=== PATIENT | male | born 1985 | race Caucasian/White ===

== ENCOUNTER 2018-06-25 23:08 | Emergency (ER) | payer MEDICAID ==
[~2018-06-25] VITALS: Ht 162.6 cm; Wt 69.9 kg
[2018-06-25 23:16] VITALS: Ht 162.6 cm; Wt 69.9 kg
[2018-06-26] MEDS ORDERED: ONDANSETRON (ODT) 4 MG TAB ODT STA (00:45)
[2018-06-26] MEDS ORDERED: IBUPROFEN 600 MG TAB PO ONE (01:00)
[2018-06-26] MEDS ORDERED: IBUP-1541 PO (02:02)
[2018-06-26] MEDS ORDERED: ONDA4TAB14 PO (02:04)
--- NOTE | 2018-06-26 02:04 | ERD ---
ER Documentation Chief Complaint Chief Complaint headache/dizziness/anxiety/body aches x 2 months ROS All systems reviewed and are negative except as per history of present illness. Medications Home Meds Active Scripts Ondansetron (Ondansetron Odt) 4 Mg Tab.rapdis, 4 MG PO Q6H PRN for NAUSEA AND/OR VOMITING, #15 TAB Prov:MANSOOR SUMMERS DO 06/26/18 Ibuprofen* (Ibuprofen*) 400 Mg Tablet, 400 MG PO Q6H PRN for PAIN, #30 TAB Prov:MANSOOR SUMMERS DO 06/26/18 Allergies Allergies: Coded Allergies: No Known Drug Allergies (Verified Allergy, Unknown, 06/25/18) PMhx/Soc Medical and Surgical Hx: pt denies Medical Hx, pt denies Surgical Hx Hx Alcohol Use: No Hx Substance Use: No Hx Tobacco Use: No Smoking Status: Never smoker Physical Exam Vitals Vital Signs Date Temp Pulse Resp B/P (MAP) Pulse Ox O2 O2 Flow FiO2 Time Delivery Rate 06/25/18 97.2 74 18 119/56 98 23:16 (77) Physical Exam Const: No acute distress Head: Atraumatic Eyes: Normal Conjunctiva ENT: Normal External Ears, Nose and Mouth. Neck: Full range of motion. No meningismus. Resp: Clear to auscultation bilaterally Cardio: Regular rate and rhythm, no murmurs Abd: Soft, non tender, non distended. Normal bowel sounds Skin: No petechiae or rashes Back: No midline or flank tenderness Ext: No cyanosis, or edema Neur: Awake and alert Psych: Normal Mood and Affect Result Diagram: 06/26/18 0055 06/26/18 0055 Results 24 hrs Laboratory Tests Test 06/26/18 00:55 White Blood Count 8.4 10^3/ul Red Blood Count 5.15 10^6/ul Hemoglobin 13.9 g/dl Hematocrit 42.3 % Mean Corpuscular Volume 82.1 fl Mean Corpuscular Hemoglobin 27.0 pg Mean Corpuscular Hemoglobin Concent 32.9 g/dl Red Cell Distribution Width 13.1 % Platelet Count 313 10^3/UL Mean Platelet Volume 9.4 fl Immature Granulocytes % 0.200 % Neutrophils % 58.7 % Lymphocytes % 29.9 % Monocytes % 8.2 % Eosinophils % 2.5 % Basophils % 0.5 % Nucleated Red Blood Cells % 0.0 /100WBC Immature Granulocytes # 0.020 10^3/ul Neutrophils # 4.9 10^3/ul Lymphocytes # 2.5 10^3/ul Monocytes # 0.7 10^3/ul Eosinophils # 0.2 10^3/ul Basophils # 0.0 10^3/ul Nucleated Red Blood Cells # 0.0 10^3/ul Sodium Level 141 mmol/L Potassium Level 4.1 mmol/L Chloride Level 102 mmol/L Carbon Dioxide Level 26 mmol/L Anion Gap 13 Blood Urea Nitrogen 10 mg/dl Creatinine 0.60 mg/dl Est Glomerular Filtrat Rate mL/min > 60 mL/min Glucose Level 109 mg/dl Calcium Level 9.3 mg/dl Total Bilirubin 0.2 mg/dl Direct Bilirubin 0.00 mg/dl Indirect Bilirubin 0.2 mg/dl Aspartate Amino Transf (AST/SGOT) 28 IU/L Alanine Aminotransferase (ALT/SGPT) 31 IU/L Alkaline Phosphatase 112 IU/L Total Protein 8.1 g/dl Albumin 4.6 g/dl Globulin 3.50 g/dl Albumin/Globulin Ratio 1.31 Current Medications Medications Dose Sig/Alesha Start Time Status Last (Trade) Ordered Route PRN Stop Time Admin Dose Reason Admin Ibuprofen 600 mg ONCE ONCE 06/26/18 DC 06/26/18 (Motrin) PO 01:00 01:01 06/26/18 01:01 Ondansetron 4 mg ONCE STAT 06/26/18 DC 06/26/18 HCl (Zofran ODT 00:45 00:59 Odt) 06/26/18 00:46 Departure Diagnosis: Primary Impression: Headache Headache type: unspecified Headache chronicity pattern: unspecified pat tern Intractability: not intractable Qualified Codes: R51 - Headache Condition: Fair Patient Instructions: Self-Care for Headaches Referrals: [facility] YOU HAVE RECEIVED A MEDICAL SCREENING EXAM AND THE RESULTS INDICATE THAT YOU DO NOT HAVE A CONDITION THAT REQUIRES URGENT TREATMENT IN THE EMERGENCY DEPARTMENT. FURTHER EVALUATION AND TREATMENT OF YOUR CONDITION CAN WAIT UNTIL YOU ARE SEEN IN YOUR DOCTORS OFFICE WITHIN THE NEXT 1-2 DAYS. IT IS YOUR RESPONSIBILITY TO MAKE AN APPOINTMENT FOR FOLOW-UP CARE. IF YOU HAVE A PRIMARY DOCTOR --you should call your primary doctor and schedule an appointment IF YOU DO NOT HAVE A PRIMARY DOCTOR YOU CAN CALL OUR PHYSICIAN REFERRAL HOTLINE AT IF YOU CAN NOT AFFORD TO SEE A PHYSICIAN YOU CAN CHOSE FROM THE FOLLOWING [facility] [address] [facility] [address] [facility] [address] [facility] [address] [facility] [phone] [facility]. [facility] [address] Additional Instructions: Llame al doctor MAANA y jovita mary SEVERIANO PARA DENTRO DE 1-2 REYES.Dgale a la secretaria que nosotros le instruimos hacer esta severiano.Avise o llame si oconnor condicin se empeora antes de la severiano. Regresa aqui si peor o no mejor. MANSOOR SUMMERS DO Jun 26, 2018 02:04
[2018-06-26 02:19] VITALS: BP 116/72; PULSE 56; RESP 18
== END 2018-06-26 02:21 | disposition home or self-care (01) ==
LOC: FTE 23:08
DX: R51 Headache (principal)
CPT/HCPCS: 36415; 80053; 85025; Z7502; Z7610; 99283

== ENCOUNTER 2018-06-30 22:37 | Emergency (ER) | payer MEDICAID ==
[~2018-06-30] VITALS: Ht 160 cm; Wt 70.1 kg
[~2018-06-30 22:37] MED LIST: IBUP-1541 PO; ONDA4TAB14 PO
[2018-06-30 22:46] VITALS: Ht 160 cm; Wt 70.1 kg
--- NOTE | 2018-07-01 01:30 | ERD ---
ER Documentation Chief Complaint Chief Complaint ST x 2 days HPI 33-year-old male, previously healthy, presents to the emergency department, complaining of 2 days with sore throat, associated with subjective fever, headache and general malaise. ROS All systems reviewed and are negative except as per history of present illness. Medications Home Meds Active Scripts Acetaminophen* (Tylenol*) 325 Mg Tablet, 2 TAB PO Q6 PRN for PAIN AND OR ELEVATED TEMP, #20 TAB Prov:SAGE WESTON MD 07/01/18 Ibuprofen* (Motrin*) 400 Mg Tab, 400 MG PO Q6H PRN for PAIN AND OR ELEVATED TEMP, #20 TAB Prov:SAGE WESTON MD 07/01/18 Ondansetron (Ondansetron Odt) 4 Mg Tab.rapdis, 4 MG PO Q6H PRN for NAUSEA AND/OR VOMITING, #15 TAB Prov:MANSOOR SUMMERS DO 06/26/18 Ibuprofen* (Ibuprofen*) 400 Mg Tablet, 400 MG PO Q6H PRN for PAIN, #30 TAB Prov:MANSOOR SUMMERS DO 06/26/18 Allergies Allergies: Coded Allergies: No Known Drug Allergies (Verified Allergy, Unknown, 06/25/18) PMhx/Soc Medical and Surgical Hx: pt denies Medical Hx, pt denies Surgical Hx Hx Alcohol Use: No Hx Substance Use: No Hx Tobacco Use: No Smoking Status: Never smoker FmHx Family History: No diabetes, No coronary disease Physical Exam Vitals Vital Signs Date Temp Pulse Resp B/P (MAP) Pulse Ox O2 O2 Flow FiO2 Time Delivery Rate 07/01/18 97.3 61 16 130/98 100 Room Air 02:30 (109) 06/30/18 97.3 64 16 129/74 100 22:46 (92) Physical Exam Const: No acute distress Head: Atraumatic Eyes: Normal Conjunctiva ENT: Mild erythematous oropharynx, normal External Ears, Nose and Mouth. Neck: Full range of motion. No meningismus. Resp: Clear to auscultation bilaterally Cardio: Regular rate and rhythm, no murmurs Abd: Soft, non tender, non distended. Normal bowel sounds Skin: No petechiae or rashes Back: No midline or flank tenderness Ext: No cyanosis, or edema Neur: Awake and alert Psych: Normal Mood and Affect Procedures/MDM Differential diagnosis include but not limited to: Respiratory infection bacterial/viral/fungal. Asthma, pneumonitis, allergies, GERD. Less likely foreign body aspiration, cardiac related, aspiration pneumonia, malignancy. Physical examination and clinical presentation consistent most likely with viral syndrome. During the ED course the patient remained stable, no new complaints. Clinical impression discussed with the patient who agrees with management. The patient is stable to be treated outpatient and will be discharged home. antibiotics not indicated at this time. some side effects of prescribed medications (headache, rash, nausea, vomiting, diarrhea, drowsiness, hypertension, interactions with other medications) were reviewed. The patient was instructed to follow up with the primary care provider in the next 48h. If symptoms persist, worsen or new symptoms develop, then patient should return to the ED immediately. Disclaimer: Inadvertent spelling and grammatical errors are likely due to EHR/dictation software use and do not reflect on the overall quality of patient care. Also, please note that the electronic time recorded on this note does not necessarily reflect the actual time of the patient encounter. Departure Diagnosis: Primary Impression: Viral syndrome Condition: Stable Additional Instructions: Muchas lizeth por [facility] para oconnor servicio. Esperamos que en oconnor visita a la alfonzo de emergencia oconnor problema medico haya sido solucionado y que se sienta mucho mejor. Para estar seguros que oconnor mejoria sigue en proceso, le pedimos el favor de hacer mary bhavesh de seguimiento medico con oconnor doctor primario en los proximos 2-4 osorio. Lleve con usted estos documentos y las medicinas recetadas. Si jaden sintomas empeoran, NO SE ESPERE, por favor regrese a alfonzo de emergencia INMEDIATAMENTE. En ross que usted no tenga un mdico de atencin primaria: Llame al mdico o clnica comunitaria de referencia que aparece abajo fouzia las horas de consultorio para hacer mary bhavesh para que le vean. CLINICAS: [facility] [phone] [facility] [phone] [address] [facility] [phone] [address] [facility] [phone] [place] [phone] [facility]. [phone] SAGE OLIVIER MD Jul 01, 2018 01:30
[2018-07-01] MEDS ORDERED: IBUP-1561 PO (01:40)
[2018-07-01] MEDS ORDERED: ACET325T33 PO (01:40)
[2018-07-01 02:30] VITALS: BP 130/98; PULSE 61; RESP 16
== END 2018-07-01 02:30 | disposition home or self-care (01) ==
LOC: FTE 22:37
DX: B34.9 Viral infection, unspecified (principal)
CPT/HCPCS: 99282

== ENCOUNTER 2018-07-14 21:03 | Emergency (ER) | payer MEDICAID ==
[~2018-07-14] VITALS: Ht 160 cm; Wt 70.9 kg
[~2018-07-14 21:03] MED LIST changes: +ACET325T33 PO; +IBUP-1561 PO
[2018-07-14 21:39] VITALS: BP 116/58; PULSE 79; RESP 22; Ht 160 cm; Wt 70.9 kg
[2018-07-14] MEDS ORDERED: BEN25 PO (22:22)
[2018-07-14] MEDS ORDERED: MUPI22OI2 TOP (22:22)
[2018-07-14] MEDS ORDERED: DOXY100T20 PO (22:22)
--- NOTE | 2018-07-14 22:54 | ERD ---
ER Documentation Chief Complaint Chief Complaint left rangel possible abscess HPI 33-year-old male with no significant past medical history presenting to the emergency department complaining of Abscess to the left anterior rangel for the past 3 days which he believes is secondary to an insect bite. Associated symptoms include redness and swelling. Symptoms are moderate in severity and constant. Patient denies any fevers or other symptoms at this time. ROS All systems reviewed and are negative except as per history of present illness. Medications Home Meds Active Scripts Diphenhydramine Hcl* (Benadryl*) 25 Mg Cap, 25 MG PO Q6 PRN for ITCHING/RASH, #30 TAB Prov:SANTOS PETTY PA-C 07/14/18 Mupirocin* (Bactroban*) 2% -22 Gram Oint...g., 1 APPLIC TOP TID, #1 TUB SITE OF APPLICATION: Prov:SANTOS PETTY PA-C 07/14/18 Doxycycline Hyclate* (Doxycycline Hyclate*) 100 Mg Tablet.dr, 100 MG PO BID for 10 Days, TAB Prov:SANTOS PETTY PA-C 07/14/18 Acetaminophen* (Tylenol*) 325 Mg Tablet, 2 TAB PO Q6 PRN for PAIN AND OR ELEVATED TEMP, #20 TAB Prov:SAGE WESTON MD 07/01/18 Ibuprofen* (Motrin*) 400 Mg Tab, 400 MG PO Q6H PRN for PAIN AND OR ELEVATED TEMP, #20 TAB Prov:SAGE WESTON MD 07/01/18 Ondansetron (Ondansetron Odt) 4 Mg Tab.rapdis, 4 MG PO Q6H PRN for NAUSEA AND/OR VOMITING, #15 TAB Prov:MANSOOR SUMMERS DO 06/26/18 Ibuprofen* (Ibuprofen*) 400 Mg Tablet, 400 MG PO Q6H PRN for PAIN, #30 TAB Prov:MANSOOR SUMMERS DO 06/26/18 Allergies Allergies: Coded Allergies: No Known Drug Allergies (Verified Allergy, Unknown, 06/25/18) PMhx/Soc Medical and Surgical Hx: pt denies Medical Hx, pt denies Surgical Hx Hx Alcohol Use: No Hx Substance Use: No Hx Tobacco Use: No Smoking Status: Never smoker FmHx Family History: No diabetes Physical Exam Vitals Vital Signs Date Temp Pulse Resp B/P (MAP) Pulse Ox O2 O2 Flow FiO2 Time Delivery Rate 07/14/18 97.7 79 22 116/58 100 21:39 (77) Physical Exam Const: No acute distress Head: Atraumatic Eyes: Normal Conjunctiva ENT: Normal External Ears, Nose and Mouth. Neck: Full range of motion. No meningismus. Resp: Clear to auscultation bilaterally Cardio: Regular rate and rhythm, no murmurs Skin: No petechiae or rashes Back: No midline or flank tenderness Ext: No cyanosis, or edema. There is an approximate 2 cm x 2 cm indurated abscess noted to the left anterior rangel with mild warmth. No active drainage. No lymphatic streaking. Neur: Awake and alert Psych: Normal Mood and Affect Procedures/MDM 33-year-old male presenting to the emergency department with signs and symptoms most consistent with abscess to the left anterior rangel. No indication for i ncision and drainage at this time as the abscess is indurated. No evidence of disseminated cellulitis or deep space infection. I doubt sepsis. Patient is stable and appropriate for further outpatient management. He agreed with the diagnosis, plan, need for follow-up, return precautions. Patient's dermatologic symptoms have stabilized while they have been evaluated in the department and are appropriate for outpatient work up. Departure Diagnosis: Primary Impression: Abscess Condition: Fair Patient Instructions: Abscess, Antiobiotic Treatment Only Referrals: [facility]) Usted se royal hecho un examen mdico de control que le indica que no est en mary condicin que requiera tratamiento urgente en el Departamento de Emergencia. Un estudio ms profundo y el tratamiento de oconnor condicin pueden esperar sin ningn riesgo hasta que usted sea atendida/o en el consultorio de oconnor mdico o mary clnica. Es responsabilidad suya arreglar mary severiano para el seguimiento del ross. MANEJO DE CONDICIONES NO URGENTES EN EL FUTURO 1) Si usted tiene un mdico de atencin primaria: Usted debera llamar a oconnor mdico de atencin primaria antes de venir al departamento de emergencia. Despus de las horas de consultorio, oconnor doctor o oconnor asociado/a est disponible por telfono. El mdico o enfermero de dariusz en el servicio telefnico puede asesorarle por monika medio para atender el problema, o ross contrario se puede programar mary severiano. 2) Si usted no tiene un mdico de atencin primaria: Llame al mdico o clnica de referencia que aparece abajo fouzia las horas de consultorio para hacer mary severiano para que le vean. CLINICAS: [place] [address] [phone] [facility] [phone] [facility] [phone] [address] [facility]. [place] [phone] [facility]. [place] [address] [phone] [facility] [phone] [address] Additional Instructions: Llame al doctor MAANA y jovita mary SEVERIANO PARA DENTRO DE 1-2 REYES.Dgale a la secretaria que nosotros le instruimos hacer esta severiano.Avise o llame si oconnor con dicin se empeora antes de la severiano. Regresa aqui si peor o no mejor. SANTOS PETTY PA-C July 14, 2018 22:54
== END 2018-07-14 22:50 | disposition home or self-care (01) ==
LOC: FTE 21:03
DX: L02.416 Cutaneous abscess of left lower limb (principal)
CPT/HCPCS: 99283

== ENCOUNTER 2018-07-25 21:57 | Emergency (ER) | payer MEDICAID ==
[~2018-07-25] VITALS: Ht 167.6 cm; Wt 68.2 kg
[~2018-07-25 21:57] MED LIST changes: +BEN25 PO; +DOXY100T20 PO; +MUPI22OI2 TOP
[2018-07-25 21:59] VITALS: Ht 167.6 cm; Wt 68.2 kg
[2018-07-26] MEDS ORDERED: DIPHTH/TET/ACEL PERTUSS (ADULT) 0.5 ML VIAL IM* ONE
[2018-07-26] MEDS ORDERED: CEPH-443 PO (00:10)
--- NOTE | 2018-07-26 00:16 | ERD ---
ER Documentation Chief Complaint Chief Complaint LEFT RANGEL BUG BITE; REDNESS, SWELLING; NO IMRPVEMENT SEEN 2WKS AGO HPI 33-year-old male presents to the ED complaining of worsening redness and swelling to his left lower rangel after a bug bite 11 days ago. Patient was initially seen here and prescribed topical antibiotics as well as doxycycline. He states he has noticed increasing swelling and pain for the past few days. He has been squeezing and getting pus out of his left rangel. He denies any fevers or chills. Denies any numbness, tingling or focal weakness. No other complaints. ROS All systems reviewed and are negative except as per history of present illness. Medications Home Meds Active Scripts Cephalexin* (Keflex*) 500 Mg Capsule, 500 MG PO QID for 7 Days, CAP Prov:TAMIKO NAVARRO PA-C 07/26/18 Diphenhydramine Hcl* (Benadryl*) 25 Mg Cap, 25 MG PO Q6 PRN for ITCHING/RASH, #30 TAB Prov:SANTOS PETTY PA-C 07/14/18 Mupirocin* (Bactroban*) 2% -22 Gram Oint...g., 1 APPLIC TOP TID, #1 TUB SITE OF APPLICATION: Prov:SANTOS PETTY PA-C 07/14/18 Doxycycline Hyclate* (Doxycycline Hyclate*) 100 Mg Tablet.dr, 100 MG PO BID for 10 Days, TAB Prov:SANTOS PETTY PA-C 07/14/18 Acetaminophen* (Tylenol*) 325 Mg Tablet, 2 TAB PO Q6 PRN for PAIN AND OR ELEVATED TEMP, #20 TAB Prov:SAGE WESTON MD 07/01/18 Ibuprofen* (Motrin*) 400 Mg Tab, 400 MG PO Q6H PRN for PAIN AND OR ELEVATED TEMP , #20 TAB Prov:SAGE WESTON MD 07/01/18 Ondansetron (Ondansetron Odt) 4 Mg Tab.rapdis, 4 MG PO Q6H PRN for NAUSEA AND/OR VOMITING, #15 TAB Prov:MANSOOR SUMMERS DO 06/26/18 Ibuprofen* (Ibuprofen*) 400 Mg Tablet, 400 MG PO Q6H PRN for PAIN, #30 TAB Prov:MANSOOR SUMMERS DO 06/26/18 Allergies Allergies: Coded Allergies: No Known Drug Allergies (Verified Allergy, Unknown, 06/25/18) PMhx/Soc History of Surgery: No Anesthesia Reaction: No Hx Neurological Disorder: No Hx Respiratory Disorders: No Hx Cardiac Disorders: No Hx Psychiatric Problems: No Hx Miscellaneous Medical Probl: No Hx Alcohol Use: No Hx Substance Use: No Hx Tobacco Use: No Smoking Status: Never smoker Physical Exam Vitals Vital Signs Date Temp Pulse Resp B/P (MAP) Pulse Ox O2 O2 Flow FiO2 Time Delivery Rate 07/25/18 97.2 67 19 129/60 99 21:59 (83) Physical Exam Const: No acute distress Head: Atraumatic Eyes: Normal Conjunctiva ENT: Normal External Ears, Nose and Mouth. Neck: Full range of motion. No meningismus. Ext: + 3 cm tender erythematous nodule to the left lower rangel, fluctuant, with surrounding erythema and warmth. No streaking. Neur: Awake and alert Psych: Normal Mood and Affect Results 24 hrs Current Medications Medications Dose Sig/Alesha Start Time Status Last (Trade) Ordered Route PRN Stop Time Admin Dose Reason Admin Diphtheria/ 0.5 ml ONCE ONCE 07/26/18 DC 07/26/18 Tetanus/Acell IM* 00:00 00:25 Pertussis 07/26/18 00:01 (Adacel) Bacitracin 1 applic ONCE ONCE 07/26/18 DC (Bacitracin TOP 01:30 Oint (Ud)) 07/26/18 01:31 Procedures/MDM PROCEDURES: Abscess Incision and Drainage with irrigation by me: Location: left rangel Anesthesia: Local 1% Lidocaine Technique: Irrigated. Disrupted loculations w/ instrumentation Packing: None Complications: Neurovascularly intact post procedure 48 hour wound check. Scar minimization instructions given. ED COURSE: The patient was given tetanus here. The medication was well tolerated. The patient remained stable throughout ED course. MEDICAL DECISION MAKIN-year-old male presents with an abscess and cellulitis his left lower rangel. He has been taking doxycycline without any improvement. Tetanus was updated. Abscess was incision and drained as above, patient tolerated well. Small amount of bloody discharge was expressed, no packing was placed. He has no evidence of sepsis or deep space tissue infection. He has no fever here and vital signs are normal. Will prescribe Keflex, and recommend finishing his course of doxycycline. Recommended wound recheck in 48 hours, otherwise return here sooner for any new or worsening symptoms. PRESCRIPTIONS: Keflex SPECIALIST FOLLOW UP RECOMMENDED: None Patient has been advised to follow up with primary care in 1-2 days. Departure Diagnosis: Primary Impression: Abscess Additional Impression: MRSA cellulitis Condition: Stable Patient Instructions: Abscess, Incision And Drainage Referrals: [facility] YOU HAVE RECEIVED A MEDICAL SCREENING EXAM AND THE RESULTS INDICATE THAT YOU DO NOT HAVE A CONDITION THAT REQUIRES URGENT TREATMENT IN THE EMERGENCY DEPARTMENT. FURTHER EVALUATION AND TREATMENT OF YOUR CONDITION CAN WAIT UNTIL YOU ARE SEEN IN YOUR DOCTORS OFFICE WITHIN THE NEXT 1-2 DAYS. IT IS YOUR RESPONSIBILITY TO MAKE AN APPOINTMENT FOR FOLOW-UP CARE. IF YOU HAVE A PRIMARY DOCTOR --you should call your primary doctor and schedule an appointment IF YOU DO NOT HAVE A PRIMARY DOCTOR YOU CAN CALL OUR PHYSICIAN REFERRAL HOTLINE AT IF YOU CAN NOT AFFORD TO SEE A PHYSICIAN YOU CAN CHOSE FROM THE FOLLOWING [facility] [address] [facility]. [facility] [address] [facility] [address] [facility] [address] [facility] [address] [facility]. [facility] [address] [facility]. [facility] YOU HAVE RECEIVED A MEDICAL SCREENING EXAM AND THE RESULTS INDICATE THAT YOU DO NOT HAVE A CONDITION THAT REQUIRES URGENT TREATMENT IN THE EMERGENCY DEPARTMENT. FURTHER EVALUATION AND TREATMENT OF YOUR CONDITION CAN WAIT UNTIL YOU ARE SEEN IN YOUR DOCTORS OFFICE WITHIN THE NEXT 1-2 DAYS. IT IS YOUR RESPONSIBILITY TO MAKE AN APPOINTMENT FOR FOLOW-UP CARE. IF YOU HAVE A PRIMARY DOCTOR --you should call your primary doctor and schedule and appointment IF YOU DO NOT HAVE A PRIMARY DOCTOR YOU CAN CALL OUR PHYSICIAN REFERRAL HOTLINE AT . IF YOU CAN NOT AFFORD TO SEE A PHYSICIAN YOU CAN CHOSE FROM THE FOLLOWING [facility] INSTITUTIONS: [facility] [address] [place] [address] [facility] [address] [place] [address] [facility] [address] [place] [address] [facility] Additional Instructions: You must return in 2 days for wound recheck. The packing must be replaced and removed as well. Monitor for any worsening redness, pain, fevers, chills. Finish the entire course of antibiotics I am prescribing you. Paciente aconseja volver a Departamento de urgencias inmediatamente para sntomas nuevos o que empeoran . Paciente aconseja posteriores con el PCP en 1-2 doss. Si el paciente no tiene ninguna de atencin primaria pueden seguir con [facility] [address] [place] [address] o [facility] [address] [place] [id number] TAMIKO NAVARRO PA-C July 26, 2018 00:16
[2018-07-26] MEDS ORDERED: BACITRACIN 0.9 GM OINT TOP ONE (01:30)
[2018-07-26 02:03] VITALS: BP 110/73; PULSE 60; RESP 18
== END 2018-07-26 02:04 | disposition home or self-care (01) ==
LOC: FTE 21:57
DX: L02.416 Cutaneous abscess of left lower limb (principal); B95.62 Methicillin resistant Staphylococcus aureus infection as the cause of diseases classified elsewhere; L03.116 Cellulitis of left lower limb; W57.XXXA Bitten or stung by nonvenomous insect and other nonvenomous arthropods, initial encounter; Y92.9 Unspecified place or not applicable; Z23 Encounter for immunization
CPT/HCPCS: 10060; 90471; 90715; Z7502; Z7610

== ENCOUNTER 2018-10-05 20:06 | Emergency (ER) | payer MEDICAID ==
[~2018-10-05] VITALS: Ht 162.6 cm; Wt 75.0 kg
[~2018-10-05 20:06] MED LIST changes: +CEPH-443 PO; +CLIN300C10 PO; +IBUP800T48 PO
[2018-10-05 20:21] VITALS: BP 123/61; PULSE 81; RESP 18; Ht 162.6 cm; Wt 75.0 kg
--- NOTE | 2018-10-05 20:49 | ERD ---
ER Documentation Chief Complaint Chief Complaint R UPPER ARM ABSCESS BY HIS ARMPIT X 1 WEEK HPI 33-year-old male presents with area of redness and swelling to his right upper arm just outside of his armpit that is had for about 1 week. He does state he had some drainage from it. He had no fever. The area is painful and tender when touched. ROS All systems reviewed and are negative except as per history of present illness. Medications Home Meds Active Scripts Ibuprofen* (Motrin*) 800 Mg Tab, 800 MG PO Q6, #30 TAB Prov:JANET NAJERA PA-C 10/05/18 Clindamycin Hcl* (Clindamycin Hcl*) 300 Mg Capsule, 300 MG PO TID for 10 Days, CAP Prov:JANET NAJERA PA-C 10/05/18 Cephalexin* (Keflex*) 500 Mg Capsule, 500 MG PO QID for 7 Days, CAP Prov:TAMIKO NAVARRO PA-C 07/26/18 Diphenhydramine Hcl* (Benadryl*) 25 Mg Cap, 25 MG PO Q6 PRN for ITCHING/RASH, #30 TAB Prov:SANTOS PETTY PA-C 07/14/18 Mupirocin* (Bactroban*) 2% -22 Gram Oint...g., 1 APPLIC TOP TID, #1 TUB SITE OF APPLICATION: Prov:SANTOS PETTY PA-C 07/14/18 Doxycycline Hyclate* (Doxycycline Hyclate*) 100 Mg Tablet.dr, 100 MG PO BID for 10 Days, TAB Prov:SANTOS PETTY PA-C 07/14/18 Acetaminophen* (Tylenol*) 325 Mg Tablet, 2 TAB PO Q6 PRN for PAIN AND OR ELEVATED TEMP, #20 TAB Prov:SAGE WESTON MD 07/01/18 Ibuprofen* (Motrin*) 400 Mg Tab, 400 MG PO Q6H PRN for PAIN AND OR ELEVATED TEMP, #20 TAB Prov:SAGE WESTON MD 07/01/18 Ondansetron (Ondansetron Odt) 4 Mg Tab.rapdis, 4 MG PO Q6H PRN for NAUSEA AND/OR VOMITING, #15 TAB Prov:MANSOOR SUMMERS DO 06/26/18 Ibuprofen* (Ibuprofen*) 400 Mg Tablet, 400 MG PO Q6H PRN for PAIN, #30 TAB Prov:MANSOOR SUMMERS DO 06/26/18 Allergies Allergies: Coded Allergies: No Known Drug Allergies (Verified Allergy, Unknown, 06/25/18) PMhx/Soc Medical and Surgical Hx: pt denies Medical Hx, pt denies Surgical Hx History of Surgery: No Anesthesia Reaction: No Hx Neurological Disorder: No Hx Respiratory Disorders: No Hx Cardiac Disorders: No Hx Psychiatric Problems: No Hx Miscellaneous Medical Probl: No Hx Alcohol Use: No Hx Substance Use: No Hx Tobacco Use: No Smoking Status: Never smoker FmHx Family History: No diabetes Physical Exam Vitals Vital Signs Date Temp Pulse Resp B/P (MAP) Pulse Ox O2 O2 Flow FiO2 Time Delivery Rate 10/05/18 98.3 81 18 123/61 99 20:21 (81) Physical Exam Const: No acute distress Head: Atraumatic Eyes: Normal Conjunctiva ENT: Normal External Ears, Nose and Mouth. Neck: Full range of motion. No meningismus. Resp: Clear to auscultation bilaterally Cardio: Regular rate and rhythm, no murmurs Skin: Abscess to inner upper arm just outside of axilla approximately 2 cm in diameter with some mild surrounding erythema, no active bleeding or drainage Procedures/MDM Abscess Incision and Drainage with irrigation by me: Location: Upper arm Anesthesia: Local 1% Lidocaine Technique: Irrigated. Disrupted loculations w/ instrumentation Packing: None Complications: Neurovascularly intact post procedure 48 hour wound check. Scar minimization instructions given. Discharged with clindamycin. Patient counseled regarding my diagnostic impression and care plan. Prior to discharge all questions answered. Pt agrees with treatment plan and understands strict return precautions. Pt is instructed to follow up with primary care provider within 24-48 hours. Precautionary instructions provided including instructions to return to the ER if not improving or for any worsening or changing symptoms or concerns.. Departure Diagnosis: Primary Impression: Abscess Condition: Stable Patient Instructions: Abscess, Incision And Drainage Additional Instructions: Call your primary care doctor TOMORROW for an appointment during the next 1-2 days.See the doctor sooner or return here if your condition worsens before your appointment time. JANET NAJERA PA-C Oct 05, 2018 20:49
== END 2018-10-05 20:53 | disposition home or self-care (01) ==
LOC: FTE 20:06
DX: L02.413 Cutaneous abscess of right upper limb (principal)
CPT/HCPCS: 10060; Z7502

== ENCOUNTER 2018-10-30 21:00 | Emergency (ER) | payer MEDICAID ==
[~2018-10-30] VITALS: Ht 162.6 cm; Wt 74.9 kg
[~2018-10-30 21:00] MED LIST changes: +IBUP-1542 PO
[2018-10-30 21:19] VITALS: Ht 162.6 cm; Wt 74.9 kg
[2018-10-30] MEDS ORDERED: ACETAMINOPHEN 325 MG TAB PO ONE (22:30)
[2018-10-30 23:15] VITALS: BP 123/80; PULSE 60; RESP 17
== END 2018-10-30 23:15 | disposition home or self-care (01) ==
LOC: FTE 21:00
DX: R07.89 Other chest pain (principal)
CPT/HCPCS: 71045; 93005; Z7502; Z7610

== ENCOUNTER 2018-11-18 19:22 | Emergency (ER) | payer MEDICAID ==
[~2018-11-18] VITALS: Ht 160 cm; Wt 77.1 kg
[~2018-11-18 19:22] MED LIST changes: +BIKTARVY ORAL; +DOXY-214 PO; -DOXY100T20 PO; +LORA-441 PO; +PROP10TA6 PO; +SERT50TA PO; +SULF1TAB31 PO
[2018-11-18 19:25] VITALS: BP 125/65; Ht 160 cm; Wt 77.1 kg
[2018-11-18] MEDS ORDERED: KETOROLAC 60 MG INJ IM STA (20:15)
[2018-11-18] MEDS ORDERED: LIDOCAINE 1% (MDV) 20 ML INJ SC ONE (20:30)
[2018-11-18] MEDS ORDERED: CEFTRIAXONE 1 GM INJ IM ONE (20:30)
[2018-11-18 21:00] VITALS: PULSE 75; RESP 20
== END 2018-11-18 21:15 | disposition home or self-care (01) ==
LOC: FTE 19:22
DX: L03.111 Cellulitis of right axilla (principal)
CPT/HCPCS: 96372; J0696; J1885; Z7502

== ENCOUNTER 2018-11-27 16:37 | Emergency (ER) | payer MEDICAID ==
[~2018-11-27] VITALS: Ht 165.1 cm; Wt 78.1 kg
[2018-11-27 16:48] VITALS: Ht 165.1 cm; Wt 78.1 kg
[2018-11-27 22:56] VITALS: BP 107/77; PULSE 58; RESP 16
== END 2018-11-27 22:58 | disposition home or self-care (01) ==
LOC: E/R 16:37
DX: R07.9 Chest pain, unspecified (principal); F41.9 Anxiety disorder, unspecified
CPT/HCPCS: 71045; 80053; 83690; 84484; 85025; 93005; Z7502